=== PATIENT | female | born 1945 | race African-American/Black ===

== ENCOUNTER 2022-09-12 23:57 | Inpatient (IN) | payer OTHER, BC ==
[2022-09-13] MEDS ORDERED: morphine SULFATE 4 MG/ML VIAL IVPUSH ONE (00:06)
[2022-09-13] MEDS ORDERED: SODIUM CHLORIDE 0.9% 500 ML INFUS.BAG IV ONE (00:07)
[2022-09-13] MEDS ORDERED: morphine SULFATE 4 MG/ML VIAL ONE (00:26)
[2022-09-13] MEDS ORDERED: HYDROmorphone HCl 2 MG/ML VIAL ONE ×2 (00:51→02:21)
[2022-09-13] MEDS ORDERED: HYDROmorphone HCl 2 MG/ML VIAL IVPB ONE (00:55)
[2022-09-13] MEDS ORDERED: HYDROmorphone HCl 2 MG/ML VIAL IVPUSH ONE ×2 (01:01→02:21)
[2022-09-13 01:40] LABS: HEMOGLOBIN 11.6 GM/dL (10.7-15.3); MCH 28.4 pg (25.7-33.7); MEAN CELL VOLUME 83.6 fl (80-96); MEAN PLT VOLUME 8.9 fl (7.5-11.1); PLATELET COUNT 379 10^3/uL (134-434); RBC 4.07 M/mm3 (3.60-5.2); RDW 18.5 % (11.6-15.6); RETICULOCYTES 2.52 % (0.5-1.5)
[2022-09-13 01:59] LABS: CALCIUM 10.5 mg/dL (8.5-10.1)
[2022-09-13 02:00] LABS: ALBUMIN 4.4 g/dl (3.4-5.0); BLOOD UREA NITROGEN 13.8 mg/dL (7-18)
[2022-09-13 02:03] LABS: CREATININE 1.4 mg/dL (0.55-1.3)
[2022-09-13 02:04] LABS: BILIRUBIN,TOTAL 2.1 mg/dL (0.2-1)
[2022-09-13 02:05] LABS: TOT PROT 8.5 g/dl (6.4-8.2)
[2022-09-13] MEDS ORDERED: morphine SULFATE 4 MG/ML VIAL IVPUSH PRN ×2 (02:22→17:18)
[2022-09-13] MEDS ORDERED: ACETAMINOPHEN 1000 MG/100 ML BAG IVPB PRN (02:23)
[2022-09-13] MEDS ORDERED: SODIUM CHLORIDE 1,000 ML IV SCH (02:30)
[2022-09-13 03:43] VITALS: BMI 27.6
[2022-09-13 04:23] LABS: CALCIUM 9.6 mg/dL (8.5-10.1)
[2022-09-13 04:24] LABS: BLOOD UREA NITROGEN 13.1 mg/dL (7-18)
[2022-09-13 04:27] LABS: CREATININE 1.2 mg/dL (0.55-1.3)
[2022-09-13 04:28] LABS: BILIRUBIN,TOTAL 1.6 mg/dL (0.2-1); TOT PROT 7.5 g/dl (6.4-8.2)
[2022-09-13] MEDS: morphine SULFATE 4 MG/ML VIAL IVPUSH PRN ×3 (10:11→16:25)
[2022-09-13] MEDS: FOLIC ACID 1 MG TABLET (FP) PO SCH (10:14)
[2022-09-13] MEDS: LACTATED RINGERS SOLUTION 1,000 ML/1,000 ML INFUS.BAG IV SCH (10:14)
[2022-09-13] MEDS: LOSARTAN POTASSIUM 50 MG TABLET PO SCH (10:14)
[2022-09-13] MEDS: ALPRAZolam 1 MG TABLET PO PRN (10:14)
[2022-09-13] MEDS: ENOXAPARIN NA (PORCINE) 40 MG/0.4 ML DISP.SYRIN SQ SCH (10:14)
[2022-09-13 11:37] LABS: EPITHELIAL CELLS FEW /hpf
[2022-09-13] MEDS: HYDROXYUREA 500 MG CAPSULE PO SCH ×2 (16:00→21:33)
[2022-09-13] MEDS: GABAPENTIN 300 MG CAPSULE PO SCH ×2 (16:00→21:33)
[2022-09-13] MEDS ORDERED: HYDROmorphone HCl 2 MG/ML VIAL IVPUSH PRN (17:17)
[2022-09-13] MEDS ORDERED: NALOXONE HCL 0.4 MG/ML VIAL IVPUSH PRN (18:01)
[2022-09-13] MEDS: HYDROmorphone *PCA* 10MG/50ML DISP.SYRIN PCA SCH (19:24)
[2022-09-13] MEDS: POLYETHYLENE GLYCOL (HEALTHYLAX) 3350 17 GM PACKET PO SCH (21:33)
[2022-09-13] MEDS: DOCUSATE SODIUM 100 MG CAPSULE (FP) PO SCH (21:34)
[2022-09-13] MEDS: SENNOSIDES 8.6MG TABLET (FP) PO SCH (21:34)
[2022-09-14] MEDS: DOCUSATE SODIUM 100 MG CAPSULE (FP) PO SCH ×3 (06:30→21:28)
[2022-09-14] MEDS: GABAPENTIN 300 MG CAPSULE PO SCH ×3 (06:30→21:28)
[2022-09-14] MEDS: HYDROXYUREA 500 MG CAPSULE PO SCH ×2 (09:51→21:28)
[2022-09-14] MEDS: SENNOSIDES 8.6MG TABLET (FP) PO SCH ×2 (09:51→21:28)
[2022-09-14] MEDS: FOLIC ACID 1 MG TABLET (FP) PO SCH (09:51)
[2022-09-14] MEDS: LOSARTAN POTASSIUM 50 MG TABLET PO SCH (09:51)
[2022-09-14] MEDS: ENOXAPARIN NA (PORCINE) 40 MG/0.4 ML DISP.SYRIN SQ SCH (09:51)
[2022-09-14] MEDS: LACTATED RINGERS SOLUTION 1,000 ML/1,000 ML INFUS.BAG IV SCH (09:52)
[2022-09-14] MEDS: POLYETHYLENE GLYCOL (HEALTHYLAX) 3350 17 GM PACKET PO SCH ×2 (09:52→21:28)
[2022-09-14 11:03] LABS: ALBUMIN 3.4 g/dl (3.4-5.0); BILIRUBIN,TOTAL 2.3 mg/dl (0.2-1); CALCIUM 9.2 mg/dl (8.5-10); CREATININE 0.7 mg/dl (0.55-1.3); TOT PROT 6.4 g/dl (6.4-8.2)
[2022-09-14 14:24] LABS: HEMATOCRIT 27.3 % (32.4-45.2); HEMOGLOBIN 9.3 GM/dL (10.7-15.3); MCH 28.5 pg (25.7-33.7); MEAN CELL VOLUME 83.9 fl (80-96); MEAN PLT VOLUME 8.5 fl (7.5-11.1); PLATELET COUNT 201 10^3/uL (134-434); RBC 3.26 M/mm3 (3.60-5.2); RDW 19.1 % (11.6-15.6); WHITE BLOOD COUNT 17.9 K/mm3 (4.0-10.0)
[2022-09-14 15:10] LABS: ANISOCYTOSIS 2+; MACROCYTOSIS 0; OVALOCYTE 1+; TARGET CELLS 2+; TEAR DROP CELLS 2+
[2022-09-14] MEDS: HYDROmorphone *PCA* 10MG/50ML DISP.SYRIN PCA SCH (19:25)
[2022-09-15] MEDS: GABAPENTIN 300 MG CAPSULE PO SCH ×3 (06:33→22:20)
[2022-09-15] MEDS: DOCUSATE SODIUM 100 MG CAPSULE (FP) PO SCH ×3 (06:33→22:20)
[2022-09-15] MEDS: HYDROXYUREA 500 MG CAPSULE PO SCH ×2 (09:10→22:20)
[2022-09-15] MEDS: FOLIC ACID 1 MG TABLET (FP) PO SCH (09:10)
[2022-09-15] MEDS: LOSARTAN POTASSIUM 50 MG TABLET PO SCH (09:10)
[2022-09-15] MEDS: SENNOSIDES 8.6MG TABLET (FP) PO SCH ×2 (09:10→22:20)
[2022-09-15] MEDS: ENOXAPARIN NA (PORCINE) 40 MG/0.4 ML DISP.SYRIN SQ SCH (09:10)
[2022-09-15] MEDS: LACTATED RINGERS SOLUTION 1,000 ML/1,000 ML INFUS.BAG IV SCH (09:11)
[2022-09-15] MEDS: POLYETHYLENE GLYCOL (HEALTHYLAX) 3350 17 GM PACKET PO SCH ×3 (09:40→22:22)
[2022-09-15] MEDS: ALPRAZolam 1 MG TABLET PO PRN (22:20)
[2022-09-15] MEDS ORDERED: oxyCODONE HCL 5 MG TABLET PO ONE (22:42)
[2022-09-15] MEDS ORDERED: ACETAMINOPHEN 1000 MG/100 ML BAG IVPB ONE (22:44)
[2022-09-16] MEDS: DOCUSATE SODIUM 100 MG CAPSULE (FP) PO SCH ×3 (06:52→21:21)
[2022-09-16] MEDS: GABAPENTIN 300 MG CAPSULE PO SCH ×3 (06:52→21:21)
[2022-09-16] MEDS ORDERED: HYDROmorphone HCL 2 MG TABLET PO ONE (09:40)
[2022-09-16] MEDS ORDERED: MAGNESIUM HYDROX 2400MG/30ML ORAL SUSPENSION 30 ML CUP PO PRN (10:16)
[2022-09-16] MEDS: LOSARTAN POTASSIUM 50 MG TABLET PO SCH (10:28)
[2022-09-16] MEDS: HYDROXYUREA 500 MG CAPSULE PO SCH ×2 (10:28→21:21)
[2022-09-16] MEDS: FOLIC ACID 1 MG TABLET (FP) PO SCH (10:28)
[2022-09-16] MEDS: SENNOSIDES 8.6MG TABLET (FP) PO SCH ×2 (10:28→21:22)
[2022-09-16] MEDS: POLYETHYLENE GLYCOL (HEALTHYLAX) 3350 17 GM PACKET PO SCH ×2 (10:30→21:22)
[2022-09-16] MEDS: LACTATED RINGERS SOLUTION 1,000 ML/1,000 ML INFUS.BAG IV SCH (10:50)
[2022-09-16] MEDS: PANTOPRAZOLE 40 MG TABLET PO SCH (10:50)
[2022-09-16] MEDS: ENOXAPARIN NA (PORCINE) 40 MG/0.4 ML DISP.SYRIN SQ SCH (10:50)
[2022-09-16 12:18] LABS: HEMATOCRIT 26.1 % (32.4-45.2); MCH 30.2 pg (25.7-33.7); MCHC 34.6 g/dl (32.0-36.0); MEAN CELL VOLUME 87.2 fl (80-96); MEAN PLT VOLUME 9.6 fl (7.5-11.1); PLATELET COUNT 146.2 10^3/uL (134-434); RBC 2.99 10^6/uL (3.60-5.2); RDW 20.4 % (11.6-15.6); WHITE BLOOD COUNT 14.7 10^3/uL (4.0-10.8)
[2022-09-16 12:26] LABS: ALBUMIN 3.1 g/dl (3.4-5.0); TOT PROT 6.3 g/dl (6.4-8.2)
[2022-09-16] MEDS: HYDROmorphone HCL 2 MG TABLET PO PRN (17:05)
[2022-09-16] MEDS ORDERED: oxyCODONE HCL 5 MG TABLET PO ONE (19:44)
[2022-09-16] MEDS ORDERED: ACETAMINOPHEN 1000 MG/100 ML BAG IVPB ONE (19:45)
[2022-09-17] MEDS: DOCUSATE SODIUM 100 MG CAPSULE (FP) PO SCH ×3 (06:26→21:58)
[2022-09-17] MEDS: GABAPENTIN 300 MG CAPSULE PO SCH ×3 (06:26→21:58)
[2022-09-17 08:46] LABS: MCH 28.7 pg (25.7-33.7); MCHC 33.3 g/dl (32.0-36.0); MEAN CELL VOLUME 86.5 fl (80-96); MEAN PLT VOLUME 10.1 fl (7.5-11.1); PLATELET COUNT 164.6 10^3/uL (134-434); RBC 2.78 10^6/uL (3.60-5.2); RDW 20.8 % (11.6-15.6)
[2022-09-17 09:02] LABS: ALBUMIN 2.8 g/dl (3.4-5.0); BILIRUBIN,TOTAL 5.1 mg/dl (0.2-1); CALCIUM 8.9 mg/dl (8.5-10); CREATININE 0.8 mg/dl (0.55-1.3); TOT PROT 5.9 g/dl (6.4-8.2)
[2022-09-17] MEDS: LOSARTAN POTASSIUM 50 MG TABLET PO SCH (09:30)
[2022-09-17] MEDS: HYDROXYUREA 500 MG CAPSULE PO SCH ×2 (09:30→21:58)
[2022-09-17] MEDS: HYDROmorphone HCL 2 MG TABLET PO PRN ×2 (09:30→15:59)
[2022-09-17] MEDS: PANTOPRAZOLE 40 MG TABLET PO SCH (09:30)
[2022-09-17] MEDS: FOLIC ACID 1 MG TABLET (FP) PO SCH (09:30)
[2022-09-17] MEDS: LACTATED RINGERS SOLUTION 1,000 ML/1,000 ML INFUS.BAG IV SCH (09:33)
[2022-09-17] MEDS: ENOXAPARIN NA (PORCINE) 40 MG/0.4 ML DISP.SYRIN SQ SCH (09:33)
[2022-09-17] MEDS: SENNOSIDES 8.6MG TABLET (FP) PO SCH ×2 (09:34→21:58)
[2022-09-17] MEDS: POLYETHYLENE GLYCOL (HEALTHYLAX) 3350 17 GM PACKET PO SCH ×2 (09:34→21:58)
[2022-09-18] MEDS: GABAPENTIN 300 MG CAPSULE PO SCH (06:27)
[2022-09-18] MEDS: DOCUSATE SODIUM 100 MG CAPSULE (FP) PO SCH (06:27)
[2022-09-18 09:02] VITALS: RESP 18
[2022-09-18] MEDS: POLYETHYLENE GLYCOL (HEALTHYLAX) 3350 17 GM PACKET PO SCH (09:19)
[2022-09-18] MEDS: PANTOPRAZOLE 40 MG TABLET PO SCH (09:19)
[2022-09-18] MEDS: LOSARTAN POTASSIUM 50 MG TABLET PO SCH (09:19)
[2022-09-18] MEDS: FOLIC ACID 1 MG TABLET (FP) PO SCH (09:19)
[2022-09-18] MEDS: ENOXAPARIN NA (PORCINE) 40 MG/0.4 ML DISP.SYRIN SQ SCH (09:19)
[2022-09-18] MEDS: HYDROXYUREA 500 MG CAPSULE PO SCH (09:19)
[2022-09-18] MEDS: SENNOSIDES 8.6MG TABLET (FP) PO SCH (09:19)
[2022-09-18] MEDS: HYDROmorphone HCL 2 MG TABLET PO PRN (12:21)
[2022-09-18] MEDS: LACTATED RINGERS SOLUTION 1,000 ML/1,000 ML INFUS.BAG IV SCH (12:31)
[2022-09-18 14:18] VITALS: BP 165/84; PULSE 101; TEMP 99
[2022-09-19 17:07] LABS: HGB SOLUBILITY Positive (Negative)
== END 2022-09-18 15:21 | disposition home or self-care (01) | DRG 812 ==
LOC: FER 23:57 → FM/S 09-13 02:22 → OBSVTOIN 09-14 12:14
PROVIDERS: ADMIT Internal Medicine
DX: D57.00 Hb-SS disease with crisis, unspecified (principal); N17.9 Acute kidney failure, unspecified; F11.20 Opioid dependence, uncomplicated; I10 Essential (primary) hypertension; F39 Unspecified mood [affective] disorder; E78.5 Hyperlipidemia, unspecified; K21.9 Gastro-esophageal reflux disease without esophagitis; E83.52 Hypercalcemia; E87.5 Hyperkalemia; K22.0 Achalasia of cardia
CPT/HCPCS: 0241U-QW; 36415; 71045-TC-FY; 80053; 81003; 81015; 83010; 83021; 83615; 85025; 85027; 85045; 85660; 93005; 93970-TC; 97116-GP; 97162-GP; 99285-25; G0378; J8999